=== PATIENT | female | born 1980 ===

== ENCOUNTER → 2016-05-30 | Day surgery (SDC) | payer BC ==
[~2016-05-30] MED LIST: Clindamycin 900 MG IVPREMIX(* 900 MG/50 ML SDV IV ONE; Lidocain 1% EPI 1:100,000 * 30 ML MDV ONE; Sodium Bicarbonate 8.4% SYR* 10 ML SYRINGE ONE
[2016-05-30 14:12] VITALS: BP 152/81
--- NOTE | 2016-06-01 12:41 | RAD ---
INDICATION: Left thumb ORIF, history of dislocation, trauma COMPARISONS: May 18, 2016 TECHNIQUE: Fluoroscopy was provided for a surgical procedure. Total fluoroscopy time is: 32 seconds FINDINGS: Spot images of the straight percutaneous fixation of the first digit of the hand IMPRESSION: FLUOROSCOPY WAS PROVIDED FOR A SURGICAL PROCEDURE CPT II Codes: 6045F
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
== END | disposition home or self-care (01) ==
LOC: OREAST 10:19
PROVIDERS: ATTEND Orthopaedic Surgery Hand Surgery
DX: S42.201A Unspecified fracture of upper end of right humerus, initial encounter for closed fracture (principal); V19.40XA Pedal cycle driver injured in collision with unspecified motor vehicles in traffic accident, initial encounter; Y93.55 Activity, bike riding; Y92.410 Unspecified street and highway as the place of occurrence of the external cause
CPT/HCPCS: C1776